=== PATIENT | female | born 1950 | race Caucasian/White ===

== ENCOUNTER 2019-07-10 06:28 | Emergency (ER) | payer MEDICARE, OTHER ==
[2019-07-10 06:36] VITALS: BP 146/64; PULSE 80
--- NOTE | 2019-07-10 06:59 | EDM.PDOC ---
ED HPI GENERAL MEDICAL PROBLEM - General Chief Complaint: Lower Extremity Injury/Pain Stated Complaint: KNEE REPLACEMENT, RIGHT... PAIN Time Seen by Provider: 07/10/19 06:59 Source of Information: Reports: Patient, RN, RN Notes Reviewed History Limitations: Reports: No Limitations - History of Present Illness INITIAL COMMENTS - FREE TEXT/NARRATIVE: patient presents to ER with complaint of right knee pain. States she had a knee replacement the beginning of May, and began having increased pain yesterday. States the pain is worse then postop pain. States minimal swelling to the right knee. Denies any long car rides or flights recently, denies hormonal replacement. Denies fever or chills. Onset: Gradual Duration: Constant, Getting Worse Location: Reports: Lower Extremity, Right Quality: Reports: Sharp Severity: Moderate Improves with: Reports: None Worsens with: Reports: None Right Knee Pain Score (Numeric/FACES): 8 - Related Data Allergies Allergy/AdvReac Type Severity Reaction Status Date / Time meperidine HCl [From Demerol] Allergy Unknown Nausea and Verified 07/10/19 06:44 Vomiting metformin Allergy Unknown Diarrhea Verified 07/10/19 06:44 MORPHINE SULFATE Allergy Unknown Nausea and Uncoded 07/10/19 06:44 Vomiting Home Meds: Home Meds Amitriptyline [Elavil] 50 mg PO BEDTIME 02/18/16 [History] Aspirin [Halfprin] 81 mg PO DAILY 02/18/16 [History] Insulin Aspart [NovoLOG] 10 units SQ QPM 02/18/16 [History] Insulin Detemir [Levemir Flextouch] 46 unit SQ BEDTIME 02/18/16 [History] Ketorolac [Acular 0.5% Ophth Soln] 1 drop EYEBOTH ASDIRECTED 02/18/16 [History] Lisinopril 20 mg PO DAILY 02/18/16 [History] Meloxicam 15 mg PO ASDIRECTED 02/18/16 [History] Metoprolol Tartrate 25 mg PO BID 02/18/16 [History] Nepafenac [Nevanac] 1 drop EYEBOTH ASDIRECTED 02/18/16 [History] Ofloxacin 1 drop EYEBOTH ASDIRECTED 02/18/16 [History] Rosuvastatin [Crestor] 10 mg PO DAILY 02/18/16 [History] prednisoLONE acetate [Pred Forte 1% Ophth Susp] 1 drop EYEBOTH ASDIRECTED [History] oxyCODONE 5 mg PO PRN 07/10/19 [History] Past Medical History HEENT History: Reports: Cataract, Impaired Vision, Other (See Below) Other HEENT History: WEARS CORRECTIVE LENSES Cardiovascular History: Reports: High Cholesterol, Hypertension Respiratory History: Reports: None Gastrointestinal History: Reports: Gastritis Genitourinary History: Reports: None 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: Musculoskeletal History: Reports: Back Pain, Chronic Neurological History: Reports: None Psychiatric History: Reports: None Endocrine/Metabolic History: Reports: Diabetes, Type II, Obesity/BMI 30+, Osteoporosis Hematologic History: Reports: None Immunologic History: Reports: None Oncologic (Cancer) History: Reports: None Dermatologic History: Reports: None - Infectious Disease History Infectious Disease History: Reports: Chicken Pox, Measles - Past Surgical History Head Surgeries/Procedures: Reports: None HEENT Surgical History: Reports: Cataract Surgery GI Surgical History: Reports: Appendectomy, Cholecystectomy, Colonoscopy, EGD Female Surgical History: Reports: Breast Biopsy, Breast Reduction, Hysterectomy, Tubal Ligation Neurological Surgical History: Reports: Laminectomy Musculoskeletal Surgical History: Reports: Arthroscopic Knee, Carpal Tunnel, Hip Replacement, Knee Replacement Oncologic Surgical History: Reports: None Dermatological Surgical History: Reports: None Social & Family History - Family History Family Medical History: Noncontributory - Tobacco Use Smoking Status *Q: Never Smoker Second Hand Smoke Exposure: No - Caffeine Use Caffeine Use: Reports: Coffee, Soda - Recreational Drug Use Recreational Drug Use: No Review of Systems - Review of Systems Review Of Systems: ROS reveals no pertinent complaints other than HPI. ED EXAM, GENERAL - Physical Exam Exam: See Below Exam Limited By: No Limitations General Appearance: Alert, WD/WN, Mild Distress Eye Exam: Bilateral Eye: EOMI, Normal Inspection Ears: Normal External Exam, Hearing Grossly Normal Nose: Normal Inspection Throat/Mouth: Normal Inspection, Normal Voice, No Airway Compromise Head: Atraumatic, Normocephalic Neck: Normal Inspection, Supple, Non-Tender, Full Range of Motion Respiratory/Chest: No Respiratory Distress, Lungs Clear, Normal Breath Sounds, No Accessory Muscle Use, Chest Non-Tender Cardiovascular: Normal Peripheral Pulses, Regular Rate, Rhythm, No Edema, No Gallop, No JVD, No Murmur, No Rub GI/Abdominal: Normal Bowel Sounds, Soft, Non-Tender (Female) Exam: Deferred Rectal (Female) Exam: Deferred Back Exam: Normal Inspection, Full Range of Motion, NT Extremities: Joint Swelling (right knee), Vance's Sign (positive), Leg Pain ( right knee), Limited Range of Motion (right knee), Increased Warmth (right knee) , Redness (minimal, right knee) Neurological: Alert, Oriented, CN II-XII Intact, Normal Cognition, Normal Gait, Normal Reflexes, No Motor/Sensory Deficits Psychiatric: Normal Affect, Normal Mood Skin Exam: Warm, Dry, Intact, Normal Color, No Rash Lymphatic: No Adenopathy Course - Vital Signs Last Recorded V/S: Last Vital Signs Temp 97.8 F 07/10/19 06:33 Pulse 80 07/10/19 06:33 Resp 16 07/10/19 06:33 BP 146/64 H 07/10/19 06:33 Pulse Ox 94 L 07/10/19 06:33 - Orders/Labs/Meds Labs: Laboratory Tests 07/10/19 07/10/19 07/10/19 Range/Units 07:13 07:13 07:13 WBC 6.8 (5.0-10.0) 10^3/uL RBC 4.29 (4.2-5.4) 10^6/uL Hgb 12.6 (12.0-16.0) g/dL Hct 38.2 (37.0-47.0) % MCV 89.0 (80-100) fL MCH 29.4 (27.0-34.0) pg MCHC 33.0 (33.0-35.0) g/dL Plt Count 196 (150-450) 10^3/uL Neut % (Auto) 60.8 (42.2-75.2) % Lymph % (Auto) 30.3 (20.5-50.1) % [place] % (Auto) 5.8 (2-8) % Eos % (Auto) 2.5 (1.0-3.0) % Baso % (Auto) 0.6 (0.0-1.0) % PT 9.3 (9.0-12.0) SEC INR 0.9 (0.9-1.2) D-Dimer, Quantitative 2760 H (0-400) ng/mL Sodium 136 (135-145) mmol/L Potassium 4.0 (3.6-5.0) mmol/L Chloride 104 (101-111) mmol/L Carbon Dioxide 23.0 (21.0-31.0) mmol/L Anion Gap 13.0 BUN 25 H (7-18) mg/dL Creatinine 0.6 (0.6-1.3) mg/dL Est Cr Clr Drug Dosing 62.67 mL/min Estimated GFR (MDRD) > 60 BUN/Creatinine Ratio 41.66 Glucose 170 H (74-105) mg/dL Calcium 8.6 (8.4-10.2) mg/dl Total Bilirubin 0.7 (0.2-1.0) mg/dL AST 23 (10-42) IU/L ALT 23 (10-60) IU/L Alkaline Phosphatase 60 (42-121) IU/L Total Protein 6.6 L (6.7-8.2) g/dl Albumin 3.8 (3.2-5.5) g/dl Globulin 2.8 Albumin/Globulin Ratio 1.36 - Radiology Interpretation Free Text/Narrative:: right leg ultrasound: FINDINGS: Right deep veins: Unremarkable. The common femoral, femoral, proximal profunda femoral and popliteal veins are patent without thrombus. Normal Doppler waveforms. Normal compressibility and/or augmentation response. Right superficial veins: Unremarkable. Saphenofemoral junction is patent without thrombus. Soft tissues: Unremarkable. IMPRESSION: No acute findings. No evidence of deep vein thrombosis. Thank you for allowing us to participate in the care of your patient. Dictated and Authenticated by: Zaire Schuster MD 07/10/2019 9:31 AM Central Time ([place] & [place]) See radiologist's report Departure - Departure Time of Disposition: 09:35 Disposition: Home, Self-Care 01 Condition: Fair Clinical Impression: Status post right knee replacement, D-dimer, elevated Right knee pain Qualifiers: Chronicity: acute Qualified Code(s): M25.561 - Pain in right knee - Discharge Information *PRESCRIPTION DRUG MONITORING PROGRAM REVIEWED*: No *COPY OF PRESCRIPTION DRUG MONITORING REPORT IN PATIENT GINETTE: No Instructions: Knee Pain, Adult, [id number], Joint Pain, [id number] Forms: ED Department Discharge Additional Instructions: May use Tylenol and/or ibuprofen for pain May use pain pills as previously prescribed for pain Drink plenty of water Ambulate and exercise the knee as ordered by orthopedic surgeon Ice the knee as tolerated follow-up with your primary care provider and your orthopedic surgeon Return to the ER with any worsening symptoms
[2019-07-10 07:39] LABS: CHLORIDE,CL 104 mmol/L (101-111); SODIUM,NA 136 mmol/L (135-145)
== END 2019-07-10 09:43 | disposition home or self-care (01) ==
LOC: DL.ED 06:28
DX: M25.561 Pain in right knee (principal); R79.1 Abnormal coagulation profile; I10 Essential (primary) hypertension; E78.5 Hyperlipidemia, unspecified; E11.9 Type 2 diabetes mellitus without complications; E66.9 Obesity, unspecified; Z68.36 Body mass index [BMI] 36.0-36.9, adult; Z88.5 Allergy status to narcotic agent; Z88.8 Allergy status to other drugs, medicaments and biological substances; Z79.82 Long term (current) use of aspirin; Z96.651 Presence of right artificial knee joint
CPT/HCPCS: 36415; 80053; 85025; 85379; 85610; 93971; 99284-25

== ENCOUNTER 2022-12-25 07:46 | Emergency (ER) | payer MEDICARE, OTHER ==
[2022-12-25 07:58] VITALS: BP 151/93; PULSE 61
[2022-12-25] MEDS ORDERED: tiZANidine 4 MG Tab PO ONE (08:35)
[2022-12-25] MEDS ORDERED: Pantoprazole 40 MG Tab.CR PO ONE (08:42)
== END 2022-12-25 09:56 | disposition home or self-care (01) ==
LOC: DL.ED 07:46
DX: M51.36 Other intervertebral disc degeneration, lumbar region (principal); M62.830 Muscle spasm of back; E78.00 Pure hypercholesterolemia, unspecified; I10 Essential (primary) hypertension; E11.9 Type 2 diabetes mellitus without complications; E66.9 Obesity, unspecified; Z68.35 Body mass index [BMI] 35.0-35.9, adult; Z96.641 Presence of right artificial hip joint; Z88.5 Allergy status to narcotic agent; Z88.8 Allergy status to other drugs, medicaments and biological substances; Z79.82 Long term (current) use of aspirin; Z79.4 Long term (current) use of insulin; Z79.899 Other long term (current) drug therapy
CPT/HCPCS: 72170; 73552; 99283; 99284; A9270

== ENCOUNTER 2024-11-28 23:33 | Emergency (ER) | payer MEDICARE, OTHER ==
[2024-11-29 00:07] VITALS: BP 146/65; PULSE 80
[2024-11-29] MEDS: Lidocaine 1% 5 ML VIAL INJECT ONE (00:12)
[2024-11-29] MEDS: Ketorolac 30 MG/ML SDV IM ONE (00:17)
[2024-11-29] MEDS: Orphenadrine 60 MG/2 ML Inj IM ONE (00:17)
[2024-11-29] MEDS: Take Home: Cyclobenzaprine 10 MG Tab, 4 Tab Pack PO ONE (00:33)
== END 2024-11-29 00:41 | disposition home or self-care (01) ==
LOC: DL.ED 23:33
DX: M54.9 Dorsalgia, unspecified (principal); E78.00 Pure hypercholesterolemia, unspecified; I10 Essential (primary) hypertension; E11.9 Type 2 diabetes mellitus without complications; Z88.8 Allergy status to other drugs, medicaments and biological substances; Z88.6 Allergy status to analgesic agent; Z79.82 Long term (current) use of aspirin; Z79.4 Long term (current) use of insulin; Z79.85 Long-term (current) use of injectable non-insulin antidiabetic drugs; Z90.49 Acquired absence of other specified parts of digestive tract
CPT/HCPCS: 96372; 99283; A9270-GY; J1885; J2003; J2360

== ENCOUNTER 2024-12-15 05:16 | Emergency (ER) | payer MEDICARE, OTHER ==
[2024-12-15 05:30] VITALS: BP 165/76; PULSE 71
[2024-12-15] MEDS: Ketorolac 30 MG/ML SDV IM ONE (05:47)
[2024-12-15] MEDS: Cyclobenzaprine 10 MG Tab PO ONE (05:47)
== END 2024-12-15 06:00 | disposition home or self-care (01) ==
LOC: DL.ED 05:16
DX: M79.7 Fibromyalgia (principal); M25.512 Pain in left shoulder; E78.00 Pure hypercholesterolemia, unspecified; I10 Essential (primary) hypertension; E11.9 Type 2 diabetes mellitus without complications; Z88.8 Allergy status to other drugs, medicaments and biological substances; Z79.899 Other long term (current) drug therapy; Z79.82 Long term (current) use of aspirin; Z79.85 Long-term (current) use of injectable non-insulin antidiabetic drugs
CPT/HCPCS: 96372; 99283; 99284; A9270; J1885